=== PATIENT | male | born 1990 | race Two or more races ===

== ENCOUNTER 2025-02-07 04:14 | Emergency (ER) | payer OTHER ==
[~2025-02-07] VITALS: Ht 180.3 cm; Wt 75.0 kg
--- NOTE | 2025-02-07 04:43 | ED.PDOC ---
History of Present Illness HPI Comments 34-year-old male with past medical history of underlying psychiatric illness, substance abuse brought in by medics for presumed alcohol intoxication. The history is taken from the medics got the history on scene. Patient was seen stumbling walking around a [place] [facility] by staff members. They then ultimately found the patient asleep in their lobby. When medics arrived the patient appeared intoxicated, required some assistance to the gurney. However, no reports of any falls, patient with no acute bodily complaints. Chief Complaint: ALOC Time Seen by MD: 04:41 Allergies: Coded Allergies: NO KNOWN ALLERGIES (Unverified , 02/07/25) Mode of Arrival: EMS Past Medical History PAST MEDICAL HISTORY: Denies Family History Family History: Reviewed,noncontributory to illness Social History Alcohol: Heavy Drugs: Methamphetamine Lives In: Homeless Constitutional: denies: chills, diaphoresis, fatigue, fever, malaise, sweats, weakness, others EENTM: denies: blurred vision, double vision, ear bleeding, ear discharge, ear drainage, ear pain, ear ringing, eye pain, eye redness, hearing loss, mouth pain, mouth swelling, nasal discharge, nose bleeding, nose congestion, nose pain, photophobia, tearing, throat pain, throat swelling, voice changes, others Respiratory: denies: cough, hemoptysis, orthopnea, SOB at rest, shortness of breath, SOB with excertion, stridor, wheezing, others Cardiovascular: denies: chest pain, dizzy spells, diaphoresis, Dyspnea on exertion, edema, irregular heart beat, left arm pain, lightheadedness, palpitations, PND, syncope, others Gastrointestinal: denies: abdomen distended, abdominal pain, blood streaked bowels, constipated, diarrhea, dysphagia, difficulty swallowing, hematemesis, melena, nausea, poor appetite, poor fluid intake, rectal bleeding, rectal pain, vomiting, others Genitourinary: denies: burning, dysuria, flank pain, frequency, hematuria, incontinence, penile discharge, penile sore, pain, testicle pain, testicle swelling, urgency, others Neurological: denies: dizziness, fainting, headache, left sided numbness, left sided weakness, numbness, paresthesia, pre-existing deficit, right sided numbness, right sided weakness, seizure, speech problems, tingling, tremors, weakness, others Musculoskeletal: denies: back pain, gout, joint pain, joint swelling, muscle pain, muscle stiffness, neck pain, others Integumetry: denies: bruises, change in color, change in hair/nails, dryness, laceration, lesions, lumps, rash, wounds, others Allergic/Immunocompromised: denies: Difficulty Healing, Frequent Infections, Hives, Itching, others Endocrine: denies: excessive hunger, excessive sweating, excessive thirst, excessive urination, flushing, intolerance to cold, intolerance to heat, unexplained weight gain, unexplained weight loss, others Psychiatric: denies: anxiety, bipolar disorder, depression, hopeless, panic disorder, schizophrenia, sleepless, suicidal, others All Other Systems: Reviewed and Negative Physical Exam General Appearance: No Apparent Distress, Normal, Other (Disheveled, smells of alcohol) HEENT: Normal ENT Inspection, Pharynx Normal, TMs Normal Neck: Full Range of Motion, Non-Tender, Normal, Normal Inspection Respiratory: Chest Non-Tender, Lungs Clear, No Accessory Muscle Use, No Respiratory Distress, Normal Breath Sounds Cardiovascular: No Edema, No JVD, No Murmur, No Gallop, Normal Peripheral Pulses, Regular Rate/Rhythm Breast Exam: Deferred Gastrointestinal: No Organomegaly, Non Tender, No Pulsatile Mass, Normal Bowel Sounds, Soft Genitalia: Deferred Pelvic: Deferred Rectal: Deferred Extremities: No calf tenderness, Normal capillary refill, Normal inspection, Normal range of motion, Non-tender, No pedal edema Musculoskeletal : Apperance: Normal Neurologic: Alert, emergency department clinician II-XII nml as Tested, No Motor Deficits, Normal Mood, No Sensory Deficits, Other (Answers simple questions, follows commands) Cerebellar Function: Normal Reflexes: Normal Skin: Dry, Normal Color, Warm Lymphatic: No Adenopathy Was a procedure done? Was a procedure done?: No Differential Dx Considerations may include: Alcohol intoxication versus methamphetamine ingestion versus psychosis X-Ray, Labs, Meds, VS Vital Signs Date Time Temp Pulse Resp B/P (MAP) Pulse Ox O2 Delivery O2 Flow Rate FiO2 02/07/25 04:20 98.1 82 18 147/88 98 98.1 Time of 1ST Reevaluation: 04:45 Reevaluation 1ST: Improved Patient Education/Counseling: Diagnosis, Treatment, Need For Follow Up Family Education/Counseling: No Family Present SEPSIS Sepsis Screen Date sepsis recognized/suspect: Feb 07, 2025 Time Sepsis recognized/suspect: 0420 Recent Procedure: No On Antibiotic Therapy: No Respiratory Rate >20: No Heart Rate >90: No Temp<36 C (96.8 F) or >38.3 C: No SBP <90 or MAP <65 mmHG: No New Acute Mental Status Change: No Is the patient on CPAP, BIPAP,: No Vital Signs Date Time Temp Pulse Resp B/P (MAP) Pulse Ox O2 Delivery O2 Flow Rate FiO2 02/07/25 04:20 98.1 82 18 147/88 98 98.1 Departure 1 Departure Time of Disposition: 04:42 (34-year-old male with past medical history of underlying psychiatric illness, substance abuse brought in by medics for presumed alcohol intoxication. Patient here arrives with normal vitals. Given no acute bodily complaints does not warrant any labs. No reports of trauma, no signs of trauma on initial examination, does not require any x-ray or CT imaging as I do not suspect any internal injuries, fractures. Patient was ambulatory as witnessed by [facility] staff and medics. Upon arrival appears to be volitionally altered, unwilling to wake up. However, after nauseous stimuli patient finally woke up. Denied any acute bodily complaints. Patient informed that he would be discharged given no acute process. Patient agreeable with plan.) Impression: Primary Impression: Altered mental status Additional Impression: Alcohol intoxication Disposition: 01 HOME / SELF CARE / HOMELESS Condition: Stable Discharged With: Self Critical Care Note Critical Care Time?: No Stability Stability form required: KERRY Salter MD Feb 07, 2025 04:43
[2025-02-07 05:21] VITALS: BP 121/90; PULSE 91; RESP 18; TEMP 98.1; O2SAT 98
--- NOTE | 2025-02-07 07:06 | ECG ---
[facility] Test Date: 2025-02-07 Test Time: 04:51:57 Pat Name: NICKY CANTU Department: Room: Gender: M [employer] De[employer] Tender: : 1990 Requested By: KERRY JOSUE Order Number: [id number] Reading MD: Natan Poole Measurements Intervals [place] Rate: 80 P: 64 DC: 144 QRS: 93 QRSD: 87 T: 40 QT: 378 QTc: 436 Interpretive Statements Sinus rhythm Borderline right axis deviation Probable left ventricular hypertrophy ST elev, probable normal early repol pattern Artifact in lead(s) I,II,III,aVR,aVL,aVF,V2 Electronically Signed On 02-07-2025 17:07:26 PST by Natan Poole Please click the below link to view image of tracing.
== END 2025-02-07 05:44 | disposition home or self-care (01) ==
LOC: EDBD 04:14 → ER 04:14
DX: R41.82 Altered mental status, unspecified (principal); F10.129 Alcohol abuse with intoxication, unspecified; Z79.899 Other long term (current) drug therapy; Y90.9 Presence of alcohol in blood, level not specified
CPT/HCPCS: 82947; 93005

== ENCOUNTER 2025-02-07 06:06 | Emergency (ER) | payer OTHER ==
[~2025-02-07] VITALS: Ht 177.8 cm; Wt 75.6 kg
[2025-02-07 06:17] VITALS: BP 121/88; PULSE 95; RESP 18; TEMP 97.9; O2SAT 97
--- NOTE | 2025-02-07 06:39 | ED.PDOC ---
Psychiatric HPI Comments This is a 34 year old male presenting to the ED with chief complaint of mental health issue. Patient reports that he was [facility] days ago, but has not been able to find a place to stay. Patient relays that he had stayed with his cellmate after being released. Patient initially claimed SI, but states he does not want to hurt himself and that he keeps putting himself in harmful situations. Patient was seen last night in the ED after being found in a [employer] intoxicated and sleeping on the lobby floor. Patient notes his father lives in [place]. Patient denies any SI, HI, AH, or VH. Chief Complaint: Suicidal Time Seen by MD: 06:35 Reviewed Notes: Nurses Notes, Medications, Allergies Information Source: Patient Mode of Arrival: Ambulatory Severity: Able to Care for Self, Able to Control Self Severity of Pain: None Severity of Mental Status: Moderate Severity of Symptoms: Moderate Timing: Hours Duration: Since onset Prehospital treatment: None Presents with: Unclear Thinking Circumstance: Medical Clearance Current substance abuse: ETOH Stressors: Homeless History of: Alcoholism Past Medical History PAST MEDICAL HISTORY: Denies Surgical History: Denies all surgeries Family History Family History: Reviewed,noncontributory to illness Social History Smoker: Cigarettes Alcohol: Heavy Drugs: Marijuana, Methamphetamine Lives In: Homeless Constitutional: denies: chills, diaphoresis, fatigue, fever, malaise, sweats, weakness, others EENTM: denies: blurred vision, double vision, ear bleeding, ear discharge, ear drainage, ear pain, ear ringing, eye pain, eye redness, hearing loss, mouth pain, mouth swelling, nasal discharge, nose bleeding, nose congestion, nose pain, photophobia, tearing, throat pain, throat swelling, voice changes, others Respiratory: denies: cough, hemoptysis, orthopnea, SOB at rest, shortness of breath, SOB with excertion, stridor, wheezing, others Cardiovascular: denies: chest pain, dizzy spells, diaphoresis, Dyspnea on ex ertion, edema, irregular heart beat, left arm pain, lightheadedness, palpitations, PND, syncope, others Gastrointestinal: denies: abdomen distended, abdominal pain, blood streaked bowels, constipated, diarrhea, dysphagia, difficulty swallowing, hematemesis, melena, nausea, poor appetite, poor fluid intake, rectal bleeding, rectal pain, vomiting, others Genitourinary: denies: burning, dysuria, flank pain, frequency, hematuria, incontinence, penile discharge, penile sore, pain, testicle pain, testicle swelling, urgency, others Neurological: denies: dizziness, fainting, headache, left sided numbness, left sided weakness, numbness, paresthesia, pre-existing deficit, right sided numbness, right sided weakness, seizure, speech problems, tingling, tremors, weakness, others Musculoskeletal: denies: back pain, gout, joint pain, joint swelling, muscle pain, muscle stiffness, neck pain, others Integumetry: denies: bruises, change in color, change in hair/nails, dryness, laceration, lesions, lumps, rash, wounds, others Allergic/Immunocompromised: denies: Difficulty Healing, Frequent Infections, Hives, Itching, others Hematologic/Lymphatic: denies: anemia, blood clots, easy bleeding, easy bruising, swollen glands, others Endocrine: denies: excessive hunger, excessive sweating, excessive thirst, excessive urination, flushing, intolerance to cold, intolerance to heat, unexplained weight gain, unexplained weight loss, others Psychiatric: denies: anxiety, bipolar disorder, depression, hopeless, panic disorder, schizophrenia, sleepless, suicidal, others All Other Systems: Reviewed and Negative Physical Exam General Appearance: No Apparent Distress HEENT: Normal ENT Inspection, Pharynx Normal, TMs Normal Neck: Full Range of Motion, Non-Tender, Normal, Normal Inspection Respiratory: Chest Non-Tender, Lungs Clear, No Accessory Muscle Use, No Res piratory Distress, Normal Breath Sounds Cardiovascular: No Edema, No JVD, No Murmur, No Gallop, Normal Peripheral Pulses, Regular Rate/Rhythm Breast Exam: Deferred Gastrointestinal: No Organomegaly, Non Tender, No Pulsatile Mass, Normal Bowel Sounds, Soft Genitalia: Deferred Pelvic: Deferred Rectal: Deferred Extremities: No calf tenderness, Normal capillary refill, Normal inspection, Normal range of motion, Non-tender, No pedal edema Musculoskeletal : Apperance: Normal Neurologic: Alert, sql ssis developer II-XII nml as Tested, No Motor Deficits, Normal Affect, Normal Mood, No Sensory Deficits Cerebellar Function: Normal Reflexes: Normal Skin: Dry, Normal Color, Warm Lymphatic: No Adenopathy Was a procedure done? Was a procedure done?: No Psych Differential Dx Psych. Differential Dx: Depression Suicidal Differential Dx: Alcohol Abuse X-Ray, Labs, Meds, VS Vital Signs Date Time Temp Pulse Resp B/P (MAP) Pulse Ox O2 Delivery O2 Flow Rate FiO2 02/07/25 06:17 97.9 95 18 121/88 97 97.9 We did contact social work professor for placement for possible homelessness Time of 1ST Reevaluation: 07:43 Reevaluation 1ST: Unchanged Patient Education/Counseling: Diagnosis, Treatment, Prognosis Family Education/Counseling: No Family Present Departure 1 Departure Time of Disposition: 07:43 Impression: Primary Impression: Substance abuse Additional Impression: Homeless Disposition: 30 STILL A PATIENT Condition: Fair Critical Care Note Critical Care Time?: No Stability Stability form required: No Heart Score Heart Score: Heart Score Response (Comments) Value History N/A 0 EKG N/A 0 Age N/A 0 Risk Factors N/A 0 Troponin N/A 0 Total 0 I personally scribed for NOEMI EDGE MD ([email or web address]) on 02/07/25 at 06:39. Electronically submitted by Jovanni Deras ([email or web address]). NOEMI EDGE MD Feb 07, 2025 06:39
== END 2025-02-07 12:10 | disposition home or self-care (01) ==
LOC: ER 06:06
DX: F19.10 Other psychoactive substance abuse, uncomplicated (principal); F10.20 Alcohol dependence, uncomplicated; F17.210 Nicotine dependence, cigarettes, uncomplicated; Y90.9 Presence of alcohol in blood, level not specified